=== PATIENT | female | born 1970 | race African-American/Black ===

== ENCOUNTER 2024-11-18 20:50 | Emergency (ER) | payer OTHER, SELFPAY ==
[2024-11-18 20:57] VITALS: BP 114/79
[2024-11-18 21:30] LABS: Hematocrit 40.9 % (37.0-47.0); Hemoglobin 14.2 g/dL (12.0-16.0); Mean Corp Hgb Conc. 34.7 g/dL (33.0-37.0); Mean Corpuscular Volume 86.5 fL (81.0-99.0); Nucleated Red Blood Cells % 0 %; Platelet Count 283 10^3/uL (130-400); Red Cell Dist. Width 14.4 % (11.5-14.5)
[2024-11-18 21:49] LABS: ALT (SGPT) 18 U/L (0-35); AST (SGOT) 19 U/L (14-36); Albumin 4.7 g/dl (3.5-5.0); Alkaline Phosphatase 63 U/L (38-126); Blood Urea Nitrogen 18 mg/dl (7-17); Calcium 9.8 mg/dl (8.4-10.2); Carbon Dioxide 28 mmol/L (22-30); Chloride 105 mmol/L (98-107); Glucose 96 mg/dl (70-99); Potassium 3.9 mmol/L (3.5-5.1); Sodium 139 mmol/L (135-145); Total Protein 8.0 g/dl (6.3-8.2); eGFR > 60.00
[2024-11-18 21:55] LABS: Troponin I < 0.012 ng/ml
[2024-11-18 23:03] VITALS: BP 105/78
--- NOTE | 2024-11-18 23:09 | EDRN ---
Pt says around 89 she developed a tightness in the middle of her chest like 'someone gripping me.' Pt took 2 Gas-X around 193 which did not help much. Pt debated going to urgent care and ultimately, 911 was called. Pt says she was instructed
to take 4 baby aspirin and says she swallowed the first one. Then she was told to chew them so she chewed 3 more however they were enteric coated. Medic gave pt 4 chewable baby aspirin. Chest pain was 6/10 however en route to ED after IV L hand
established, pt's chest pain was improved and she could hardly feel it so ntg was not given. Pt denies radiation of pain, diaphoresis, n/v, fever/chills/cough, sob, dizziness, weakness. Pt says pain is completely gone at this time.
[2024-11-18 23:24] LABS: Lipase 64 U/L (23-300)
[2024-11-18 23:30] LABS: Troponin I < 0.012 ng/ml
[2024-11-19 00:07] VITALS: BP 99/84
[2024-11-19 01:00] VITALS: BP 94/77
--- NOTE | 2024-11-19 03:52 | ED.GENMED ---
History of Present Illness
General
Chief Complaint: Chest Pain
Source: patient
Exam Limitations: none
Time Seen by Provider: 11/18/24 22:32
Nursing documentation reviewed up to this point in time: agreed with
History of Present Illness
History of Present Illness:
54-year-old female with history of vaping but no other chronic medical issues presents to the ER for evaluation of chest pain. 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 She says that she was out with her client getting her nails done and
subsequently went to the [facility] [employer] [place]. She said she had some stuffed mushrooms to eat. After eating she says that she started to develop some chest pain which she describes as a pressure/heaviness. She says that initially she thought it
was gas and so she took some Gas-X but it did not seem to be improving. She says she was planning to go to urgent care to get an EKG but her client insisted that they call EMS and have her evaluated and brought to the ER. EMS did give her aspirin
and transported to the ER. Currently she says she is chest pain-free. She says she did not have any associated nausea, vomiting, diaphoresis. Did not have any associated shortness of breath or palpitations. She says she has not had similar
symptoms in the past. She denies any known cardiac history. She is adopted and is unsure of any family history. She denies any smoking but vapes as above. No alcohol or drug use reported.
Review of Systems
Review of Systems
All Other Systems: ROS reviewed and negative except as documented in HPI and ROS
Constitutional: Denies fever or chills
Respiratory: Denies cough or trouble breathing
Cardiac: Reports chest pain; Denies palpitations or syncope
ABD/GI: Denies abdominal pain, nausea or vomiting
: Denies flank pain
Musculoskeletal: Denies neck pain or back pain
Neurological: Denies dizzy or headache
Phy Exam
Physical Exam
Physical Exam:
General: Awake, alert, oriented x3; no acute distress
Head: Normocephalic, atraumatic
Eyes: Conjunctiva normal, sclera anicteric
Throat: Airway intact, handling secretions
Neck: Trachea midline, no JVD
Lungs: Clear to auscultation bilaterally, no wheezing, rales, rhonchi
Heart: Regular rate and rhythm, no murmurs, gallops, or rubs
Abd: Soft, non distended, mildly tender in the right upper quadrant
Neuro: No gross deficits
Skin: no rash noted
Extremities: No edema in extremities, no calf tenderness, equal pulses in all extremities
Scores
Heart Failure Risk
Heart Failure Risk Score: Not Applicable
Heart Score for Chest Pain Patients
STEMI patient?: No
History: Slightly or Non-Suspicious
ECG: Normal
Age: >45 - <65 years
Risk Factors: 1 or 2 Risk Factors
Troponin: </= Normal Limit
Heart Score for Chest Pain Patients: 2
Heart Score Risk: 2.5% MACE over next 6 weeks
Withdrawal Assessment of Alcohol
Withdrawal Assessment Completed?: Not applicable
Course
Orders/Labs/Results
Orders:
Orders
11/18/24 20:57
ECG [Electrocardiogram (*1)] Urgent
Reason for Study: Chest Pain
EKG- Treatment ONCE
11/18/24 21:24
Complete Blood Count/With Diff Urgent
Comprehensive Metabolic Panel Urgent
Lipase Urgent
Comment: ADD ON
Troponin I Urgent
11/18/24 22:44
CR Chest - 2 Views Urgent
Comment:
Reason For Exam: chest pain
US Abdomen Complete/Upper Urgent
Comment:
Reason For Exam: chest pain, RUQ abd pain
11/18/24 22:45
Add On- LAB Urgent
Tests Added?: lipase
11/18/24 23:01
Troponin I Urgent
Abnormal Lab Results
11/18/24
21:24
Neutrophils % 39.0 L %
(42.2-75.2)
Eosinophils % 6.4 H %
(0-6)
BUN 18 H mg/dl
(7-17)
11/18/24 21:24
11/18/24 21:24
Vital Signs
Initial and Last Documented VS:
Initial Vital Signs
Temp Pulse Resp BP Pulse Ox
37.1 C 74 18 114/79 98
11/18/24 20:57 11/18/24 20:57 11/18/24 20:57 11/18/24 20:57 11/18/24 20:57
Last Documented Vital Signs
Temp Pulse Resp BP Pulse Ox
37.1 C 67 17 94/77 98
11/18/24 20:57 11/19/24 01:00 11/19/24 01:00 11/19/24 01:00 11/18/24 23:03
MDM/Problems Addressed
Differential Diagnosis Includes:
GERD, ACS, cholecystitis/cholelithiasis, pancreatitis, less likely pneumothorax/pneumonia/PE clinically
MDM/Problems Addressed:
54-year-old female presents after an episode of atypical postprandial chest pain that did not respond to Gas-X. Currently asymptomatic. Vitals and exam as above. Her EKG shows mildly low voltage but no ST changes. She had lab work sent off
including a CBC and a CMP which showed no clinically significant abnormalities. She had 2 undetectable troponins. LFTs lipase normal. Chest x-ray no acute disease. She did have some mild upper abdominal tenderness and given postprandial nature
of the symptoms she was sent for an upper abdominal ultrasound which showed no gallstones or signs of cholecystitis. Suspect likely GERD. Advised to take OTC Pepcid/Prilosec. Stable for discharge to follow-up with PCP, when discussing follow-up
plan with patient she did admit that she does not have a primary doctor. I sent a message to our primary care referral line to help facilitate outpatient PCP follow-up. Patient comfortable with this plan. All questions answered.
*Radiology
Radiology exam reviewed: preliminary read by ED provider and radiology read reviewed
*Pulse Oximetry
SaO2: 98
Oxygen Mode of Delivery: Room air
Patient hypoxic: no (98%)
*EKG
Interpreted by ED Provider?: Yes
Heart Rate: 73
Rate: normal
Rhythm: sinus
[place]: normal axis
Interval: normal interval
QRS Pattern: low voltage
Ischemia: other (Septal infarct age-indeterminate)
*Critical Care Note
Total Time (30-74mins, 75-104mins- exclusive of procedures): Not Applicable
Data Reviewed
Source: patient and ambulance crew
ED Attending Note
-
Portions of this chart may have been created with voice recognition software.� Occasional wrong word or��sound alike� substitutions may have occurred due to the inherent limitations of voice recognition software.
Discharge Plan
Departure
Patient Disposition: Home (Routine Discharge)
Date of Disposition: 11/19/24
Time of Disposition: 01:32
Patient with high blood pressure during this ER visit?: No
Discharge Problem:
Chest pain
Instructions: Chest Pain PCP Follow Up
Prescriptions:
No Action
Ashwagandha With [place]
2 tab PO DAILY
Chlorophyll
2 drp PO DAILY
Referrals:
NONE,* [Family Provider, Internal Medicine]
Activity Restrictions/Additional Instructions:
Thank you for visiting the Emergency Department at [facility].
1. Please schedule a follow up appointment as directed. Call first thing tomorrow morning to make an appointment.
2. If indicated, please take your medications as instructed and indicated on discharge paperwork.
3. If any of your symptoms do not improve, or persist, or become more severe within 6-12 hours, please return to the emergency department for further care.
4. Please return to the emergency department if you develop a headache, neck pain/stiffness, fever greater than 100.4F, chest pain, shortness of breath, persistent nausea, vomiting, slurred speech, difficulty walking, numbness/tingling, weakness,
signs of infection or any other symptoms that are worrisome to you.
Please call [phone] if you have any questions.
Interventions
Interventions:
*Risk Screen - Suicide Last Done: 11/18/24 23:18
*General Assessment Last Done: 11/18/24 23:18
*Neglect/Abuse Screening Last Done: 11/18/24 23:18
*ED- Fall Risk Assessment Last Done: 11/18/24 23:18
*ED COVID-19 Vaccine History Last Done: 11/18/24 20:57
*Nursing Disposition Last Done: 11/19/24 01:40
ED- Cardiac Assessment Last Done: 11/18/24 23:06
Discharge Date and Time
Discharge Date/Time: 11/19/24 01:40
Print Language: UKRAINIAN
== END 2024-11-19 01:40 | disposition home or self-care (01) ==
LOC: EMR 20:50
PROVIDERS: Emergency Medicine; EMERGENCY PHYSICIAN Emergency Medicine
DX: R07.9 Chest pain, unspecified (principal); Z87.891 Personal history of nicotine dependence
CPT/HCPCS: 99285; 71046; 76700; 80053; 83690; 84484; 85025; 93005